=== PATIENT | female | born 1975 | race Caucasian/White ===

== ENCOUNTER 2020-01-19 09:39 | Outpatient (CLI) | payer MEDICAID, SELFPAY ==
--- NOTE | 2020-01-19 09:44 | MM_ITS ---
WS: [id number] BILATERAL DIGITAL SCREENING MAMMOGRAPHY WITH CAD CLINICAL INFORMATION: SCREENING HISTORY: Screening mammogram. No current complaints. COMPARISON: TECHNIQUE: Bilateral CC and MLO views. FINDINGS: The breasts are composed of heterogeneous fibroglandular density tissue, which can limit the detectio n of small underlying mass lesions. No suspicious mass, asymmetry, calcifications, or architectural d istortion. No evidence of malignancy. MM/[place] [id number] IMPRESSION: BI-RADS: 1-Negative FOLLOW UP: 1 Year Follow-up Recommend return to annual screening mammography.
== END 2020-01-19 09:40 | disposition home or self-care (01) ==
LOC: RADSHAW 09:42
PROVIDERS: PCP Nurse Practitioner; Visit Provider Nurse Practitioner
DX: Z12.31 Encounter for screening mammogram for malignant neoplasm of breast (principal)
CPT/HCPCS: 77067

== ENCOUNTER 2021-02-22 09:19 | Outpatient (CLI) | payer MEDICAID, SELFPAY ==
--- NOTE | 2021-02-22 09:22 | MM_ITS ---
WS: [id number] BILATERAL SCREENING DIGITAL MAMMOGRAM WITH CAD HISTORY: SCREENING COMPARISON: 01/19/2020, 12/10/2018, 12/04/2017 Bilateral CC and MLO views submitted. Computer aided detection analyzed. Breast composition: The breasts are heterogeneously dense, which may obscure small masses. No suspici ous masses, microcalcifications or architectural distortion. Scattered asymmetries are stable. MM/[place] [id number] IMPRESSION: BI-RADS: 2-Benign FOLLOW UP: 1 Year Follow-up
== END 2021-02-22 09:20 | disposition home or self-care (01) ==
LOC: RADSHAW 09:21
PROVIDERS: PCP Nurse Practitioner; Visit Provider Nurse Practitioner
DX: Z12.31 Encounter for screening mammogram for malignant neoplasm of breast (principal)
CPT/HCPCS: 77067

== ENCOUNTER 2021-03-30 11:09 | Outpatient (CLI) | payer MEDICAID, SELFPAY ==
[2021-03-30 11:51] VITALS: BP 138/84; PULSE 92; RESP 17; TEMP 35.8; O2SAT 96; BMI 44.2
[2021-03-30 13:06] VITALS: BP 140/90; PULSE 90; RESP 19; TEMP 36.6; O2SAT 96
[2021-03-30 14:06] VITALS: BP 123/80; PULSE 82; RESP 20; TEMP 36.8; O2SAT 97
== END 2021-03-30 11:10 | disposition home or self-care (01) ==
LOC: OPS 11:15
PROVIDERS: PCP Nurse Practitioner Family; Visit Provider Nurse Practitioner Family
DX: U07.1 COVID-19 (principal)
CPT/HCPCS: 96372

== ENCOUNTER 2021-04-12 12:05 | Outpatient (CLI) | payer MEDICAID, SELFPAY ==
--- NOTE | 2021-04-12 12:13 | XR_ITS ---
WS: [id number] Exam: XR chest 2V* [id number] Date/Time of Exam: 04/12/2021 12:13 PM Reason For Exam: COUGH Comparison 12/04/2018. Findings: The lungs are clear and fully expanded. Costophrenic angles are sharp. No infiltrates. Bronchovascula r relief appears normal. Cardiac silhouette is unremarkable. Bony elements are intact. Spondylosis an d degenerative changes of the dorsal spine. XR/XR chest 2V* [id number] IMPRESSION: Unremarkable chest radiograph.
== END 2021-04-12 12:06 | disposition home or self-care (01) ==
LOC: RAD 12:07
PROVIDERS: PCP Nurse Practitioner Family; Visit Provider Nurse Practitioner Family
DX: R05.9 Cough, unspecified (principal)
CPT/HCPCS: 71046

== ENCOUNTER 2022-01-06 16:11 | Outpatient (CLI) | payer MEDICAID, SELFPAY ==
--- NOTE | 2022-01-06 16:29 | XRR_ITS ---
PROCEDURE INFORMATION: Exam: XR Right Hip Exam date and time: 01/06/2022 4:29 PM Age: 46 years old Clinical indication: Pain and injury or trauma; Fall; Blunt trauma (contusions or hematomas); Hip pain; Right hip; Additional info: Pain in right hip TECHNIQUE: Imaging protocol: Radiologic exam of the Right hip. Views: 1 view hip with pelvis when performed. COMPARISON: No relevant prior studies available. FINDINGS: Bones/joints: Severe right hip osteoarthritis. Negative fracture or dislocation. Soft tissues: Unremarkable. XR/XR hip RT 2-3V wo/w pel* [id number] IMPRESSION: 1. Negative fracture or dislocation. 2. Severe right hip osteoarthritis.
== END 2022-01-06 16:12 | disposition home or self-care (01) ==
LOC: RAD 16:18
PROVIDERS: PCP Nurse Practitioner Family; Visit Provider Nurse Practitioner Family
DX: M16.11 Unilateral primary osteoarthritis, right hip (principal)
CPT/HCPCS: 73502

== ENCOUNTER 2022-03-01 11:30 | Outpatient (CLI) | payer MEDICAID, SELFPAY ==
--- NOTE | 2022-03-01 11:36 | MM_ITS ---
WS: [id number] BILATERAL SCREENING DIGITAL TOMOSYNTHESIS MAMMOGRAM WITH CAD HISTORY: SCREENING COMPARISON: 2020, 01/19/2020 Bilateral CC and MLO views with tomosynthesis and synthetic mammography submitted. Computer aided det ection analyzed. Breast composition: The breasts are heterogeneously dense, which may obscure small masses. No suspici ous masses, microcalcifications or architectural distortion. MM/[place] [id number] IMPRESSION: BI-RADS: 1-Negative FOLLOW UP: 1 Year Follow-up
== END 2022-03-01 11:31 | disposition home or self-care (01) ==
LOC: RAD 11:33
PROVIDERS: PCP Nurse Practitioner Family; Visit Provider Nurse Practitioner Family
DX: Z12.31 Encounter for screening mammogram for malignant neoplasm of breast (principal)
CPT/HCPCS: 77063; 77067

== ENCOUNTER → 2022-06-14 10:17 | Outpatient (BNVA) | payer MEDICAID, SELFPAY | PROVIDERS: PCP Nurse Practitioner Family; Visit Provider Podiatrist Foot & Ankle Surgery | DX: Q82.8 Other specified congenital malformations of skin (principal); M21.612 Bunion of left foot; M20.42 Other hammer toe(s) (acquired), left foot; M21.42 Flat foot [pes planus] (acquired), left foot; L60.3 Nail dystrophy | CPT/HCPCS: 17110; 73630; 99203 ==

== ENCOUNTER → 2022-06-29 09:56 | Outpatient (BNVA) | payer MEDICAID, SELFPAY | PROVIDERS: PCP Nurse Practitioner Family; Visit Provider Podiatrist Foot & Ankle Surgery | DX: L60.8 Other nail disorders (principal); L60.3 Nail dystrophy; Q82.8 Other specified congenital malformations of skin; M21.612 Bunion of left foot; M20.42 Other hammer toe(s) (acquired), left foot; M21.42 Flat foot [pes planus] (acquired), left foot | CPT/HCPCS: 11750 ==

== ENCOUNTER → 2022-07-13 10:57 | Outpatient (BNVA) | payer MEDICAID, SELFPAY | PROVIDERS: PCP Nurse Practitioner Family; Visit Provider Podiatrist Foot & Ankle Surgery | DX: Q82.8 Other specified congenital malformations of skin (principal); L60.0 Ingrowing nail; L60.8 Other nail disorders; M21.612 Bunion of left foot; M20.42 Other hammer toe(s) (acquired), left foot; M21.42 Flat foot [pes planus] (acquired), left foot; L60.3 Nail dystrophy | CPT/HCPCS: 99213 ==

== ENCOUNTER → 2022-07-24 09:55 | Outpatient (BNVA) | payer MEDICAID, SELFPAY | PROVIDERS: PCP Nurse Practitioner Family; Visit Provider Podiatrist Foot & Ankle Surgery | DX: L60.0 Ingrowing nail (principal); M20.42 Other hammer toe(s) (acquired), left foot | CPT/HCPCS: 99214 ==

== ENCOUNTER 2022-08-25 06:02 | Day surgery (SDC) | payer MEDICAID, SELFPAY ==
[2022-08-24 08:15] VITALS: BMI 45.6
--- NOTE | 2022-08-25 | XR_ITS ---
WS: [id number] Left foot, C-arm fluoroscopy, 08/25/2022 Clinical Data: CRISTY PICS Comparison: None. Findings: There is an orthopedic pin inserted the length of the left second toe. XR/XR foot LT 2V [id number] Impression: Fusion of left second toe.
--- NOTE | 2022-08-25 05:59 | W.PM.OPSUD ---
Surgery/Procedure H&P Update DATE OF PROCEDURE: August 25, 2022 DATE H&P PERFORMED: 08/25/22 CHANGES TO PREVIOUS DOCUMENTATION: None PLANNED PROCEDURE: Operation Date: 08/25/22 07:00 Proposed Procedures p Left second hammertoe correction 69259,M20.42(Left) - Merlin Hyde DPM
--- NOTE | 2022-08-25 05:59 | PM.OPSURHP ---
Providers/Chief Complaint Primary Care Provider: Tammy Gastelum NP Chief Complaint: M20.42 History of Present Illness Andie Lomeli is a 47 year old female Patient presents for surgical consultation of her left second toe, the hammertoe deformity that has been responsible for altered mechanics, wound formation and infection. Has finished taking doxycycline 100mg BID.? Patient has been applying silvadene and band-aid.? She states that she has been experiencing increase discomfort when not having toe wrap.? Still has buckling of her left second toe causing pain from the downward pressure.? Would like to discuss surgical options.? Patient denies any subjective nausea, vomiting, fever, chills, shortness of breath or chest pain.? Review of Systems General: Reports: 10 or more systems reviewed and unremarkable except in HPI and below Const: Denies: fever(s) or chills Eyes: Denies: change in vision Card: Denies: chest pain or palpitations Resp: Denies: dyspnea or productive cough GI: Denies: abdominal pain, nausea or vomiting : Denies: flank pain Musc: Reports: extremity pain, joint pain, joint stiffness, limited range of motion and deformity Skin/Breast: Reports: skin tenderness; Denies: rash Neuro: Reports: difficulty walking; Denies: numbness in extremities, sensory changes or frequent falls Psych: Denies: suicidal ideation Alexander/Lymph: Denies: easy bruising Medications/Allergies Home Medications Medication Instructions Recorded Confirmed Last Taken Type prenat.vits,latoya,tpt-pkiw-[id number] 1 tab PO DAILY 08/09/20 08/24/22 Unknown History clobetasol 0.05 % scalp solution 1 applic topical DAILY #50 mL 02/22/21 08/24/22 Unknown Rx ketoconazole 2 % shampoo 1 applic topical .2 x weekly #120 03/09/22 08/24/22 Unknown Rx mL pimecrolimus 1 % topical cream 1 applic topical BID #30 grams 03/09/22 08/24/22 Unknown Rx (Elisol) ibuprofen 200 mg tablet 200 mg PO Q6H PRN Pain 08/24/22 08/24/22 Unknown History tramadol 50 mg tablet 50 mg PO DAILY PRN Pain 08/24/22 08/24/22 Unknown History Allergies Allergy/AdvReac Type Severity Reaction Status Date / Time penicillin G Allergy rash Verified 07/24/22 10:06 PFSH PFSH: Medical History History of malignant melanoma No pertinent past medical history Surgical History History of lumpectomy of left breast History of tonsillectomy Social History Smoking and tobacco status: never smoked Alcohol intake: current Alcohol intake frequency: holidays/special occasions only Female Reproductive History: Date of last menstrual period: 08/05/22 Vital Signs Weight: Weight last 48 hrs Weight 300 lb Physical Exam Narrative: EXAM NARRATIVE: Patient is alert and oriented ?3 and in no acute distress.? The following is a focused bilateral lower extremity exam. VASCULAR: Dorsalis pedis and posterior tibial arteries palpable +2.? Capillary refill time less than 3 seconds to the distal hallux bilaterally. Calf is supple and nontender proximally and distally.? No pedal edema appreciated.? Pedal hair growth present. NEUROLOGICAL: Epicritic and protopathic sensations grossly intact to the lower extremities.? +2 Achilles tendon reflex noted bilaterally.? Negative Tinel sign upon percussion of lower extremity nerves. DERMATOLOGICAL: Focal hyperkeratotic lesion subfirst metatarsal head of the left foot with a nucleated core.? Mild erythema left second toe matrixectomy site.? No carolin purulence.? Rubor to the left second toe distally. MUSCULOSKELETAL: Reducible hammertoe deformity with sagittal plane dominance to the left second toe.? On gait analysis patient has substitution of flexor tendons and is aggressively plantarflex and her left second toe during stance phase.? Tenderness at hyperkeratotic lesions of first metatarsal head of the left foot.? Tenderness at left second toenail.? Hammertoe of digits 2, 3, 4, 5 left foot.? Bunion of the left foot.? Pes planus foot type bilaterally. CARDIOVASCULAR: S1, S2, normal rate, normal rhythm.? LUNGS: Clear to auscltation, no use of acessory muscles, no crackles or wheezes. A&P Assessment and plan (1) Hammertoe of second toe of left foot: (2) Left foot pain: Plan Pleasant 47-year-old female continues have pain on a daily basis left second toe, she is trying to lose weight and states that trying to maintain activity is difficult due to her left second toe pain.? Like to discuss surgical options.? Has underwent a matrixectomy of the left second dystrophic toenail, has been utilizing a crest pad or hammertoe cushion pad both supportive shoes without improvement in her pain.? She has flexor substitution and sagittal plane contracture of the left second toe.? Her tenderness is at the distal tuft of her left second toe.? Discussed risks versus benefits of flexor tenotomy, given her activity levels and age I am fearful of increased risk for flail toe.? Discussed risks versus benefits of traditional hammertoe surgery which would require arthroplasty of the DIPJ and PIPJ with K wire fixation.? I reviewed at length with the patient, the risks, potential complications, benefits, alternatives, expectations, and typical outcomes associated with the surgery. The risks and potential complications were explained in detail, including but not limited to infection, wound dehiscence or soft tissue complications, bleeding and hematoma, chronic edema, neuritis or nerve damage producing numbness or chronic pain, CRPS, failure to relieve pain or worsening pain, thick / painful / unsightly scar, limited motion / stiffness, malposition, delayed union, malunion, or nonunion, fracture, reaction to implants, anesthetic complications, venous thromboembolism, and deformity recurrence.? I discussed the notion of no regrets with the patient as it pertains to complications and outcomes. The patient seemed to understand the nature of the proposed care and required convalescence. They asked appropriate questions, answered to their satisfaction. They are aware no guarantees can be made as to a satisfactory outcome and they understand there may be other possible unforeseen complications or outcomes not listed here that will be treated accordingly if they arise. There were no written or implied guarantees given to the patient. They gave informed consent to proceed. 08/25/2022 left second hammertoe correction, outpatient, local MAC, shara, supine, K wire fixation, mini C arm, TPS, 30 minutes Coding Level of Care Code Acute Code for Chg Fwd Diagnoses Hammertoe of second toe of left foot M20.42 Left foot pain M79.672
[2022-08-25 06:23] VITALS: BP 157/99; PULSE 84; RESP 16; TEMP 36.7; O2SAT 97
[2022-08-25] MEDS: sodium chloride 0.9% 1,000 ML 30 ML IV (06:28)
[2022-08-25] MEDS: gabapentin 300 mg Capsule PO (06:28)
[2022-08-25] MEDS: CELEcoxib 200 mg Capsule 400 MG PO (06:28)
--- NOTE | 2022-08-25 06:31 | ANES.PREANE2 ---
Pre-Anesthetic Assessment Height/Weight: Height 1.73 m Weight 136.078 kg Temp Pulse Resp BP Pulse Ox O2 Del Method 98.1 F 84 16 157/99 97 Room Air 08/25/22 06:23 08/25/22 06:23 08/25/22 06:23 08/25/22 06:23 08/25/22 06:23 08/25/22 06:23 Preop Diagnosis: Left second hammertoe deformity Operation Date: 08/25/22 07:00 Proposed Procedures p Left second hammertoe correction 67409,M20.42(Left) - Merlin Hyde DPM Familial anesthetic complications: None Was Beta Markell taken within 24 hours: N/A Was Clonidine taken within 24 hours: N/A Last intake: Intake Last Liquid Date 08/24/22 Last Liquid Time 17:30 Last Solid Date 08/24/22 Last Solid Time 17:30 Social No alcohol and No tobacco Exam alert, oriented x 3, clear to auscultation bilaterally and regular rate & rhythm Airway Mallampati: Class III Dentition: chipped Metabolic Morbid Obesity Anesthetic Plan ASA status: 2 Anesthesia: MAC Risk of > 500 ml blood loss (7ml/kg in children): No Medications/Allergies Home Medications Medication Instructions Recorded Confirmed Last Taken Type prenat.vits,latoya,pyr-exqo-bhudm 1 tab PO DAILY 08/09/20 08/25/22 08/24/22 History clobetasol 0.05 % scalp solution 1 applic topical DAILY #50 mL 02/22/21 08/25/22 Unknown Rx ketoconazole 2 % shampoo 1 applic topical .2 x weekly #120 03/09/22 08/25/22 2 Months Ago Rx mL ~06/25/22 pimecrolimus 1 % topical cream 1 applic topical BID #30 grams 03/09/22 08/25/22 2 Days Ago Rx (Elidel) ~08/23/22 ibuprofen 200 mg tablet 200 mg PO Q6H PRN Pain 08/24/22 08/25/22 08/24/22 History tramadol 50 mg tablet 50 mg PO DAILY PRN Pain 08/24/22 08/25/22 08/24/22 History hydrocodone 7.5 mg-acetaminophen 1 tab PO Q6H PRN pain 7 days #28 08/25/22 Unknown Rx 325 mg tablet tabs Allergies Allergy/AdvReac Type Severity Reaction Status Date / Time penicillin G Allergy rash Verified 08/25/22 06:15 Current Medications Generic Name Dose Route Start Last Admin Trade Name Edwinq PRN Reason Stop Dose Admin Sodium Chloride 1,000 mls @ 30 mls/hr 08/25/22 06:15 08/25/22 06:28 Sodium Chloride 0.9% IV 08/26/22 06:14 30 mls/hr .Q24H GIOVANNA Administration PFSH Anesthesia Medical History History of malignant melanoma No pertinent past medical history Surgical History History of lumpectomy of left breast History of tonsillectomy Social History Smoking and tobacco status: never smoked Alcohol intake: current Alcohol intake frequency: holidays/special occasions only Female Reproductive History Date of last menstrual period: 08/05/22 Data Anesthesia Cardiac Studies: No Data to Display
[2022-08-25 06:35] LABS: OR HCG Qualitative Urine Negative (Negative)
[2022-08-25] MEDS: clindamycin 600 MG/50 ML PREMIX 100 MG IV (07:01)
[2022-08-25 07:40] VITALS: BP 116/60; PULSE 76; RESP 16; TEMP 36.1; O2SAT 96
[2022-08-25 07:45] VITALS: BP 115/72; PULSE 81; RESP 16; O2SAT 97
--- NOTE | 2022-08-25 07:47 | PM.OP ---
Operative Report Date of procedure: August 25, 2022 Pre-op diagnosis: Preop Diagnosis Left second hammertoe deformity Post-op diagnosis: Left second hammertoe deformity Procedure done: Left second hammertoe correction. CPT code 02294 Implants: 0.062 K wire. 4-0 nylon, 4-0 Vicryl Surgeon: Merlin Hyde D.P.M. Data Analytics Architect: Shreya Estimated blood loss: Less than 5 15 Brief History: Pleasant 47-year-old female continues have pain on a daily basis left second toe, she is trying to lose weight and states that trying to maintain activity is difficult due to her left second toe pain.? Like to discuss surgical options.? Has underwent a matrixectomy of the left second dystrophic toenail, has been utilizing a crest pad or hammertoe cushion pad both supportive shoes without improvement in her pain.? She has flexor substitution and sagittal plane contracture of the left second toe.? Her tenderness is at the distal tuft of her left second toe.? Discussed risks versus benefits of flexor tenotomy, given her activity levels and age I am fearful of increased risk for flail toe.? Discussed risks versus benefits of traditional hammertoe surgery which would require arthroplasty of the DIPJ and PIPJ with K wire fixation.? I reviewed at length with the patient, the risks, potential complications, benefits, alternatives, expectations, and typical outcomes associated with the surgery. The risks and potential complications were explained in detail, including but not limited to infection, wound dehiscence or soft tissue complications, bleeding and hematoma, chronic edema, neuritis or nerve damage producing numbness or chronic pain, CRPS, failure to relieve pain or worsening pain, thick / painful / unsightly scar, limited motion / stiffness, malposition, delayed union, malunion, or nonunion, fracture, reaction to implants, anesthetic complications, venous thromboembolism, and deformity recurrence.? I discussed the notion of no regrets with the patient as it pertains to complications and outcomes. The patient seemed to understand the nature of the proposed care and required convalescence. They asked appropriate questions, answered to their satisfaction. They are aware no guarantees can be made as to a satisfactory outcome and they understand there may be other possible unforeseen complications or outcomes not listed here that will be treated accordingly if they arise. There were no written or implied guarantees given to the patient. They gave informed consent to proceed. Procedure: Under mild sedation the patient was brought to the operating room and remained on the gurney in supine position. A timeout was performed. Anesthesia was then administered by the anesthesia service. Local anesthesia was injected by myself consisting of 10 cc of 0.5% Marcaine plain in a left second ray block fashion. Exparel total of 10 cc was infiltrated in a grid like fashion subcutaneously to the dorsal aspect of the left forefoot focused at the second ray. Well-padded pneumatic tourniquet was applied to the left ankle. The left lower extremity was scrubbed, prepped and draped utilizing normal aseptic technique. Left foot was then exanguinated with an Esmarch bandage and the tourniquet was inflated to 250 mmHg. Attention was directed to the dorsal aspect of the left second toe where a transverse incision that was semielliptical and converging in fashion was performed through skin with a #15 blade at the dorsal aspect of the left second toe proximal interphalangeal joint with skin bridge being excised and passed from the operative field. Transverse tenotomy was performed as well as transverse capsulotomy at the proximal interphalangeal joint. The head of the proximal phalanx and base of the middle phalanx were denuded of the articular surfaces. The second toe was then reduced in a rectus position in the sagittal plane as well as in the frontal and transverse plane and fixated utilizing a K wire both antegrade and retrograde fashion with a K wire protruding at the second toe and bent at 90 degrees and covered with a Delvis ball. The incision was flushed with copious amounts of sterile saline solution. Intraoperative C-arm confirmed that the K wire did not violate the metatarsal phalangeal joint. The K wire was centered down the medullary canal and excellent apposition of the arthrodesis site of the proximal phalange joint appreciated. The incision was further irrigated and closed in a layered fashion. The extensor tendons were reapproximated utilizing 4-0 Vicryl. Skin reapproximated utilizing 4-0 nylon. The incision was then dressed with Adaptic, sterile 4 x 4's, Kerlix and Damon wrap. Cam boot was applied to the left lower extremity and the tourniquet was deflated. A prompt hyperemic response was noted to the distal digits of the left foot. Patient tolerated the procedure and anesthesia well and was transferred to the PACU with vital signs stable and vascular status intact. Following a period of postoperative monitoring she will be discharged home. May be protected weightbearing with limited activity with a cam boot at all times. Advised patient to elevate her left foot while resting. She was prescribed hydrocodone to be taken judiciously as needed for pain. Will follow-up in podiatry clinic next week for first postoperative visit. Sooner should she experience complications.
[2022-08-25 07:50] VITALS: BP 124/66; PULSE 77; RESP 16; O2SAT 97
[2022-08-25 07:53] VITALS: BP 119/65; PULSE 69; RESP 18; TEMP 36.2; O2SAT 99
[2022-08-25 08:10] VITALS: BP 113/71; PULSE 68; RESP 18; O2SAT 100
--- NOTE | 2022-08-25 12:23 | ANE.PACU2 ---
Inpatient post-anesthesia follow up: Airway intact: Yes Vital signs: Temperature 97.2 F Pulse Rate 68 Respiratory Rate 18 Blood Pressure 113/71 Pulse Oximetry 100 Oxygen Delivery Me thod Room Air Oxygen Flow Rate Fraction of Inspir ed Oxygen Hydration adequate: Yes Nausea and vomiting: No Pain level: 1 Mental status: Baseline
== END 2022-08-25 08:19 | disposition home or self-care (01) ==
PROVIDERS: Anesthesiology; PCP Nurse Practitioner Family; Visit Provider Podiatrist Foot & Ankle Surgery
PROC: (CPT 28285; principal; 2022-08-25 07:00)
DX: M20.42 Other hammer toe(s) (acquired), left foot (principal); E66.01 Morbid (severe) obesity due to excess calories; Z68.42 Body mass index [BMI] 45.0-49.9, adult
CPT/HCPCS: 28285; 73620; 76000; 84703; C1713; C9290; J2250; J2704; J3010; J3490; J7030

== ENCOUNTER → 2022-08-31 13:46 | Outpatient (BNVA) | payer MEDICAID, SELFPAY | PROVIDERS: PCP Nurse Practitioner Family; Visit Provider Podiatrist Foot & Ankle Surgery | DX: M20.42 Other hammer toe(s) (acquired), left foot (principal); Z98.890 Other specified postprocedural states | CPT/HCPCS: 99024 ==

== ENCOUNTER → 2022-09-06 08:49 | Outpatient (BNVA) | payer MEDICAID, SELFPAY | PROVIDERS: PCP Nurse Practitioner Family; Visit Provider Podiatrist Foot & Ankle Surgery | DX: M20.42 Other hammer toe(s) (acquired), left foot (principal); Z98.890 Other specified postprocedural states | CPT/HCPCS: 73630; 99024 ==

== ENCOUNTER → 2022-09-22 09:11 | Outpatient (BNVA) | payer MEDICAID, SELFPAY | PROVIDERS: PCP Nurse Practitioner Family; Visit Provider Podiatrist Foot & Ankle Surgery | DX: Z98.890 Other specified postprocedural states (principal); M20.42 Other hammer toe(s) (acquired), left foot; L21.8 Other seborrheic dermatitis; Z85.820 Personal history of malignant melanoma of skin; L82.1 Other seborrheic keratosis; L85.3 Xerosis cutis; L57.8 Other skin changes due to chronic exposure to nonionizing radiation; L81.4 Other melanin hyperpigmentation; D22.5 Melanocytic nevi of trunk; Z71.89 Other specified counseling; L57.0 Actinic keratosis; L72.11 Pilar cyst | CPT/HCPCS: 11102; 17000; 17003; 73630; 99214 ==

== ENCOUNTER → 2022-10-11 07:39 | Outpatient (BNVA) | payer MEDICAID, SELFPAY | PROVIDERS: PCP Nurse Practitioner Family; Visit Provider Podiatrist Foot & Ankle Surgery | DX: L72.0 Epidermal cyst (principal); M20.42 Other hammer toe(s) (acquired), left foot; Z47.89 Encounter for other orthopedic aftercare; Z98.890 Other specified postprocedural states | CPT/HCPCS: 11423; 12032; 73630; 99024 ==

== ENCOUNTER → 2022-10-19 08:03 | Outpatient (BNVA) | payer MEDICAID, SELFPAY | PROVIDERS: PCP Nurse Practitioner Family; Visit Provider Podiatrist Foot & Ankle Surgery | DX: Z98.890 Other specified postprocedural states (principal); M20.42 Other hammer toe(s) (acquired), left foot | CPT/HCPCS: 73630; 99213 ==

== ENCOUNTER → 2022-10-25 11:51 | Outpatient (BNVA) | payer MEDICAID, SELFPAY | PROVIDERS: PCP Nurse Practitioner Family; Visit Provider Dermatology | DX: Z48.02 Encounter for removal of sutures (principal) | CPT/HCPCS: 99024 ==

== ENCOUNTER 2022-10-29 10:20 | Emergency (ER) | payer MEDICAID, SELFPAY ==
[2022-10-29] VITALS (7 sets, daily range): BP systolic 112–181; BP diastolic 55–121; PULSE 75–86; RESP 1–18; TEMP 36.4; O2SAT 92–99; BMI 44.8
--- NOTE | 2022-10-29 11:41 | CTR_ITS ---
PROCEDURE INFORMATION: Exam: CT Abdomen And Pelvis Without Contrast Exam date and time: 10/29/2022 12:04 PM Age: 47 years old Clinical indication: Abdominal pain; Flank; Right; Additional info: Right flank pain TECHNIQUE: Imaging protocol: Computed tomography of the abdomen and pelvis without contrast. Radiation optimization: All CT scans at this facility use at least one of these dose optimization techniques: automated exposure control; mA and/or kV adjustment per patient size (includes targeted exams where dose is matched to clinical indication); or iterative reconstruction. REPORTING DATA: Count of CT and Cardiac NM exams in prior 12 months: This patient has received 0 known CTs and 0 known cardiac nuclear medicine studies in the 12 months prior to the current study. COMPARISON: CR XR hip RT 2-3V wo/w pel* [id number] 01/06/2022 4:29 PM RADIATION DOSE METRICS: Total DLP (mGy-cm): 1149.92 FINDINGS: Lungs: Multifocal ground-glass opacities are present at the right lung base. Liver: Normal. No mass. Gallbladder and bile ducts: Cholelithiasis. Pancreas: Normal. No ductal dilation. Spleen: The spleen is mildly enlarged measuring 12.9 centimetres. Adrenal glands: Normal. No mass. Kidneys and ureters: There is an 8 mm by 3 mm calculus in the distal right ureter.Mild to moderate hydronephrosis/hydroureter and associated inflammatory stranding. Stomach and bowel: Unremarkable. No obstruction. No mucosal thickening. Appendix: A normal appendix is identified. Intraperitoneal space: Unremarkable. No free air. No significant fluid collection. Vasculature: There is scattered atherosclerotic plaque in the aorta and iliac arteries. Lymph nodes: Unremarkable. No enlarged lymph nodes. Urinary bladder: Unremarkable as visualized. Reproductive: There is a heterogeneous lesion which can not be differentiated from the right side of the uterus and right adnexa measuring 6.3 cm in the transverse dimension. Smaller nodular density along the anterior aspect of the uterus likely represents a fibroid. Bones/joints: There are degenerative changes in the visualized spine. Degenerative changes extend across the pubic symphysis and sacroiliac joints. There is partial osseous fusion across the left sacroiliac joint. There are severe degenerative changes across the right hip joint. [id number] degenerative changes across the left hip joint. Soft tissues: Small fat containing umbilical hernia. CT/CT kidney stone [id number] IMPRESSION: 1. There is an 8 mm x 3 mm calculus in the distal right ureter with obstructive changes as described above. 2. Multifocal ground-glass opacities at the right lung base are nonspecific and can be seen with atypical infection, pneumonitis, and/or pulmonary edema. 3. Heterogeneous lesion which can not be differentiated from the right side of the uterus and right adnexa. Pelvic ultrasound recommended for further evaluation. 4. Cholelithiasis. 5. The spleen is mildly enlarged.
--- NOTE | 2022-10-29 11:42 | W.ED.ABDPA2 ---
HPI - Abdominal Pain General: Chief Complaint: Abdominal Pain Stated Complaint: Right side abd pain, N/V Time Seen by Provider: 10/29/22 11:35 History of Present Illness: This patient is a 47 year old presenting with right flank pain that started at 6:30 this morning. The pain is in her right mid-back and her right mid-abdomen. She also has had burning with urination and she vomited. The pain is slightly better now but still present. She notes that she felt nauseous yesterday morning but didn't throw up, but had none of the other symptoms until this morning. She has not had any abdominal surgeries, she has never had kidney stones. She has had surgery on her face for a melanoma 2 years ago, and had had surgery on her left second toe. She is currently on doxycycline for redness in the toe. Her LMP was one week ago and was normal in timing and duration. PFS ED PFSH: Medical History History of malignant melanoma No pertinent past medical history Surgical History History of lumpectomy of left breast History of tonsillectomy Social History Smoking and tobacco status: never smoked Alcohol intake: current Alcohol intake frequency: holidays/special occasions only Physical Exam Const: COMMON NORMALS: no acute distress, patient oriented x3, no limitations and alert GENERAL APPEARANCE: cooperative and comfortable HENMT: HEAD & SCALP: normal to inspection FACE & SINUS: normal facial exam Eye: GENERAL EYE: appearance normal, both eyes and all related structures Neck/C-Spine: COMMON NORMALS: supple, no meningeal signs and no JVD Chest: COMMONS NORMALS: normal inspection of the chest Resp: COMMON NORMALS: normal respiratory effort, No use of accessory muscles and clear to auscultation bilaterally AUSCULTATION: clear to auscultation bilaterally Cardio: COMMON NORMALS: no JVD, regular rate, regular rhythm and No murmurs present (Cardio) RATE: regular rate RHYTHM: regular rhythm GI: AUSCULTATION: Yes normoactive bowel sounds PALPATION: Yes Tenderness to palpation present (GI) Details: RLQ and RUQ and No Guarding due to palpation present (GI) : BLADDER/KIDNEY EXAM: Yes CVA tenderness on the right Back/Pelvis: COMMON NORMALS: thoracic and lumbar spine normal to inspection GENERAL BACK: Yes CVA tenderness Extremity: OTHER: left second toe without nail - red, swollen, tender Neuro: COMMON NORMALS: patient oriented x3, moves all extremities, no focal motor deficits and no sensory deficits noted SENSORIUM/ORIENTATION: Yes alert MENINGEAL SIGNS: Yes no meningeal signs Psych: COMMON NORMALS: mental status grossly normal, cooperative and normal affect Skin: COMMON NORMALS: no rashes or lesions noted and turgor normal GENERAL SKIN EXAM: no rashes or lesions noted and turgor normal Course Vital Signs: Vital signs: Vital Signs Temperature 97.6 F 10/29/22 10:35 Pulse Rate 79 10/29/22 15:54 Respiratory Rate 1 L 10/29/22 15:26 Blood Pressure 142/86 10/29/22 15:54 Pulse Oximetry 95 10/29/22 15:54 Oxygen Delivery Me thod Room Air 10/29/22 10:35 MDM - Abdominal Pain Medical Decision Making Clinical impression on initial history and exam is kidney stone. Also consider pyelonephritis, although abrupt onset make stone more likely. However, she also has her gallbladder, appendix and ovaries - consideration for pathology in those organs is needed. Also history of melanoma, which is alway concerning for metastatic disease. Her left second toe is under treatment and she doesn't think it looks any worse than it has been looking. Likely unrelated to her symptoms today - although the doxycycline could contribute to nausea. Ct with kidney stone, 3 cm by 8 cm. Mild to moderate hydronephrosis. No UTI. CT also shows gallstones and an abnormality on the right uterus and adnexa. On re-examination, the patient does have RUQ tenderness. An US was ordered to make sure the the gallbladder is not contributing to the patient symptoms today. We discussed the option for a pelvic US but the patient prefers to discuss with her PCP at her well woman exam tomorrow. I think that is reasonable and I don't think it is an acute issue needing emergent imaging. Pain controlled - outpatient follow up with urology and PCP. Lab Data 10/29/22 12:01 10/29/22 12:01 Labs/Radiology: Radiology Impressions Abdomen/Pelvis CT 10/29/22 11:41 IMPRESSION: 1. There is an 8 mm x 3 mm calculus in the distal right ureter with obstructive changes as described above. 2. Multifocal ground-glass opacities at the right lung base are nonspecific and can be seen with atypical infection, pneumonitis, and/or pulmonary edema. 3. Heterogeneous lesion which can not be differentiated from the right side of the uterus and right adnexa. Pelvic ultrasound recommended for further evaluation. 4. Cholelithiasis. 5. The spleen is mildly enlarged. Gallbladder Ultrasound 10/29/22 14:24 IMPRESSION: 1. Shsp-ui-pvgojxda right hydronephrosis. 2. There are stones and sludge in the gallbladder. No evidence for wall thickening or pericholecystic fluid to suggest acute cholecystitis. Laboratory Results WBC 13.7 10^3/uL (4.0-10.0) H 10/29/22 12:01 RBC 4.62 10^6/uL (4.1-5.3) 10/29/22 12:01 Hgb 13.7 g/dL (11.5-15.3) 10/29/22 12:01 Hct 42.6 % (37.0-47.0) 10/29/22 12:01 MCV 92.2 fl (81-99) 10/29/22 12:01 MCH 29.7 pg (28.0-34.0) 10/29/22 12:01 MCHC 32.2 g/dL (30.0-36.0) 10/29/22 12:01 RDW 12.8 % (12.1-15.1) 10/29/22 12:01 Plt Count 374 10^3/cmm (130-400) 10/29/22 12:01 MPV 10.1 fL (7.4-10.4) 10/29/22 12:01 Neut % (Auto) 91.6 % 10/29/22 12:01 Lymph % (Auto) 5.3 % 10/29/22 12:01 [place] % (Auto) 2.3 % 10/29/22 12:01 Eos % (Auto) 0.0 % 10/29/22 12:01 Baso % (Auto) 0.4 % 10/29/22 12:01 Neut # (Auto) 12.50 10^3/uL (1.8-7.7) H 10/29/22 12:01 Lymph # (Auto) 0.7 10^3/uL (0.8-4.8) L 10/29/22 12:01 [place] # (Auto) 0.3 10^3/uL (0.2-0.9) 10/29/22 12:01 Eos # (Auto) 0.0 10^3/uL (0.0-0.8) 10/29/22 12:01 Baso # (Auto) 0.1 10^3/uL (0.0-0.1) 10/29/22 12:01 Nucleated RBC % (auto) 0 % 10/29/22 12:01 Nucleated RBCs # 0.0 /100WBC 10/29/22 12:01 Sodium 137 mmol/L (136-145) 10/29/22 12:01 Potassium 4.3 mmol/L (3.5-5.1) 10/29/22 12:01 Chloride 102 mmol/L (98-107) 10/29/22 12:01 Carbon Dioxide 28 mmol/L (22-29) 10/29/22 12:01 Anion Gap 11.2 (5-19) 10/29/22 12:01 BUN 22 mg/dL (6-20) H 10/29/22 12:01 Creatinine 0.9 mg/dL (0.5-0.9) 10/29/22 12:01 GFR Calculation 66.5 mL/min (90-130) L 10/29/22 12:01 Glucose 141 mg/dL (65-115) H 10/29/22 12:01 Calculated Osmolality 284 mOsm/kg (285-295) L 10/29/22 12:01 Calcium 9.1 mg/dL (8.5-10.5) 10/29/22 12:01 Total Bilirubin 0.2 mg/dL (0.15-1.2) 10/29/22 12:01 AST 12 U/L (0-32) 10/29/22 12:01 ALT 10 U/L (0-33) 10/29/22 12:01 Alkaline Phosphatase 54 U/L (35-105) 10/29/22 12:01 Total Protein 7.0 g/dL (6.6-8.7) 10/29/22 12:01 Albumin 4.0 g/dL (3.5-5.2) 10/29/22 12:01 Globulin 2.9 g/dL (1.3-4.6) 10/29/22 12:01 Lipase 10 U/L (13-60) L 10/29/22 12:01 Urine Color Yellow (Yellow) 10/29/22 12:00 Urine Appearance Cloudy (CLEAR) A 10/29/22 12:00 Urine pH 5 (5-7) 10/29/22 12:00 Ur Specific [place] 1.030 (1.005-1.030) 10/29/22 12:00 Urine Protein 1+ (Negative) H 10/29/22 12:00 Urine Glucose (UA) Norm (Normal) 10/29/22 12:00 Urine Ketones Negative (Negative) 10/29/22 12:00 Urine Blood 3+ (Negative) H 10/29/22 12:00 Urine Nitrate Negative (Negative) 10/29/22 12:00 Urine Bilirubin 1+ (Negative) H 10/29/22 12:00 Urine Urobilinogen 1 mg/dL (Negative) H 10/29/22 12:00 Ur Leukocyte Esterase Negative (Negative) 10/29/22 12:00 Urine RBC 15-25 /hpf (0-2) H 10/29/22 12:00 Urine WBC 0-4 /hpf (0-5) H 10/29/22 12:00 Ur Squamous Epith Cells 5-10 /hpf (0-5) H 10/29/22 12:00 Amorphous Sediment 4+ /hpf 10/29/22 12:00 Urine Bacteria 2+ /hpf (NONE) H 10/29/22 12:00 Discharge Plan Discharge Patient Disposition: Home Clinical Impression: Calculus of kidney, H/O Malignant melanoma, S/P foot surgery, Cholelithiasis, Pelvic mass Condition: Stable Prescriptions: New hydrocodone-acetaminophen 5-325 mg tablet 1 tab PO Q6H PRN (Reason: pain) Qty: 20 0RF promethazine 25 mg tablet 25 mg PO Q6H PRN (Reason: nausea and vomiting) Qty: 14 0RF tamsulosin 0.4 mg capsule 0.4 mg PO DAILY Qty: 10 0RF No Action prenat.vits,latoya,wuq-uttn-exaza Tablet 1 tab PO DAILY clobetasol 0.05 % solution 1 applic topical DAILY Qty: 50 3RF Rx Instructions: Apply to itchy areas on scalp daily prn. May apply to ears x 2 weeks then 3x weekly prn ketoconazole 2 % shampoo 1 applic topical .2 x weekly Qty: 120 3RF Rx Instructions: Lather into scalp 2 times weekly. Allow to sit on scalp for 5 minutes before rinsing. pimecrolimus [Elidel] 1 % cream 1 applic topical BID Qty: 30 0RF Rx Instructions: Apply to ears BID for itching. doxycycline hyclate 100 mg capsule 100 mg PO BID 14 Days Qty: 28 0RF hydrocodone-acetaminophen 5-325 mg tablet 1 tab PO Q8H PRN (Reason: pain) 7 Days Qty: 21 0RF ibuprofen 200 mg Tablet 200 mg PO Q6H PRN (Reason: Pain) Discharge Orders: Discharge ED (Routine); Ordered 10/29/22 Ordered By: France Zhou Referrals: Tammy Gastelum, KAYODE [Primary Care Provider] - Patient Instructions: Opioid Safety, Pain Management Activity Restrictions/Additional Instructions: Keep your follow up appointment with your primary care provider tomorrow. Discuss the CT findings including the pelvic mass and the gallstones. You can expect a call from our case reviewer at the hospital to help set up urology follow up - and your doctor can help with that as well. Use the pain medicine as needed - return to the ED if fever, vomiting, uncontrolled pain or if not able to urinate. Coding Level of Care Code ED Kickboxing Instructor for Monie Woodard
[2022-10-29 12:16] LABS: Basophils # 0.1 10^3/uL (0.0-0.1); Basophils % 0.4 %; Hematocrit 42.6 % (37.0-47.0); Hemoglobin 13.7 g/dL (11.5-15.3); Lymphocytes # 0.7 10^3/uL (0.8-4.8); Lymphocytes % 5.3 %; Mean Corpuscular HGB Conc 32.2 g/dL (30.0-36.0); Mean Corpuscular Hemoglobin 29.7 pg (28.0-34.0); Mean Corpuscular Volume 92.2 fl (81-99); Mean Platelet Volume 10.1 fL (7.4-10.4); Monocytes # 0.3 10^3/uL (0.2-0.9); Monocytes % 2.3 %; Neutrophils % 91.6 %; Nucleated Red Blood Cells % 0 %; Platelet Count 374 10^3/cmm (130-400); Red Blood Count 4.62 10^6/uL (4.1-5.3); Red Cell Distribution Width 12.8 % (12.1-15.1); White Blood Count 13.7 10^3/uL (4.0-10.0)
[2022-10-29] MEDS: morphine 4 mg/mL SDV 1 mL IVP ×2 (12:19→15:26)
[2022-10-29] MEDS: ondansetron 2 mg/ML SDV 2 mL 4 MG IVP (12:19)
[2022-10-29 12:56] LABS: Add Urine Microscopic? YES; Bilirubin Urine 1+ (Negative); Blood Urine 3+ (Negative); Glucose Urine UA Norm (Normal); Ketones Urine Negative (Negative); Leukocyte Esterase Urine Negative (Negative); Nitrate Urine Negative (Negative); Protein Urine 1+ (Negative); Urine Appearance Cloudy (CLEAR); Urine Color Yellow (Yellow); Urobilinogen Urine 1 mg/dL (Negative); pH Urine 5 (5-7)
[2022-10-29 12:59] LABS: RBC Urine 15-25 /hpf (0-2); WBC Urine 0-4 /hpf (0-5)
[2022-10-29 13:01] LABS: Amorphous Sediment Urine 4+ /hpf; Bacteria Urine 2+ /hpf
[2022-10-29 13:02] LABS: Add Urine Culture? Yes
[2022-10-29 13:08] LABS: Alanine Aminotransferase 10 U/L (0-33); Alkaline Phosphatase 54 U/L (35-105); Aspartate Amino Transferase 12 U/L (0-32); Chloride 102 mmol/L (98-107); Potassium 4.3 mmol/L (3.5-5.1); Sodium 137 mmol/L (136-145)
[2022-10-29 13:20] LABS: Anion Gap 11.2 (5-19); Blood Urea Nitrogen 22 mg/dL (6-20); Calcium 9.1 mg/dL (8.5-10.5); Carbon Dioxide 28 mmol/L (22-29); Globulin 2.9 g/dL (1.3-4.6); Glomerular Filtration Rate 66.5 mL/min (90-130); Glucose 141 mg/dL (65-115); Lipase 10 U/L (13-60); Osmolality Calculated 284 mOsm/kg (285-295); Total Bilirubin 0.2 mg/dL (0.15-1.2)
--- NOTE | 2022-10-29 14:24 | USR_ITS ---
PROCEDURE INFORMATION: Exam: US Abdomen, Limited; Right Upper Quadrant Exam date and time: 10/29/2022 2:39 PM Age: 47 years old Clinical indication: Abnormal radiologic finding of the abdomen; Ruq pain, stones on CT TECHNIQUE: Imaging protocol: Real time ultrasound of the abdomen with image documentation. Limited exam focused on the right upper quadrant. COMPARISON: CT kidney stone [id number] 10/29/2022 12:04 PM FINDINGS: Liver: Normal. No masses. Gallbladder: There are stones and sludge in the gallbladder. No evidence for gallbladder wall thickening or pericholecystic fluid. Account Specialist reports a positive sonographic Willis's sign. Biliary ducts: Normal. No stones. No dilation. Pancreas: Visualized pancreas is unremarkable. Right kidney: Mfbq-fa-aqjskjyl right hydronephrosis. US/US gall bladder [id number] IMPRESSION: 1. Pikp-vk-zjqgsfcd right hydronephrosis. 2. There are stones and sludge in the gallbladder. No evidence for wall thickening or pericholecystic fluid to suggest acute cholecystitis.
--- NOTE | 2022-10-30 14:47 | DCPLANNER ---
Addendum entered by Mira Valdovinos 10/31/22 08:24: manager market development spoke with patients mother, who stated that patient followed up with her primary care physician. manager market development was told patient does not want the referral at this time. Original Note: manager market development had message to schedule a follow up appointment for patient with urology. manager market development called patient to confirm where she would like referral sent to because [facility] does not have a urologist at this time. manager market development unable to speak with patient, left a message to patient to return director case management phone call.
== END 2022-10-29 15:55 | disposition home or self-care (01) ==
PROVIDERS: Emergency Provider Emergency Medicine; PCP Nurse Practitioner Family
DX: N13.2 Hydronephrosis with renal and ureteral calculous obstruction (principal); K80.20 Calculus of gallbladder without cholecystitis without obstruction; R19.00 Intra-abdominal and pelvic swelling, mass and lump, unspecified site; Z85.820 Personal history of malignant melanoma of skin; Z98.890 Other specified postprocedural states
CPT/HCPCS: 74176; 76705; 80053; 81001; 83690; 85025; 87086; 96374; 96375; 96376; 99285; J2270; J2405

== ENCOUNTER → 2022-11-01 13:48 | Outpatient (BNVA) | payer MEDICAID, SELFPAY | PROVIDERS: PCP Nurse Practitioner Family; Visit Provider Podiatrist Foot & Ankle Surgery | DX: Z98.890 Other specified postprocedural states (principal) | CPT/HCPCS: 73630; 99024 ==

== ENCOUNTER → 2022-11-27 13:15 | Outpatient (BNVA) | payer MEDICAID, SELFPAY | PROVIDERS: PCP Nurse Practitioner Family; Visit Provider Obstetrics & Gynecology | DX: N83.9 Noninflammatory disorder of ovary, fallopian tube and broad ligament, unspecified (principal); D25.9 Leiomyoma of uterus, unspecified | CPT/HCPCS: 76830 ==

== ENCOUNTER → 2022-11-29 16:04 | Outpatient (BNVA) | payer MEDICAID, SELFPAY | PROVIDERS: PCP Nurse Practitioner Family; Visit Provider Obstetrics & Gynecology | DX: N83.8 Other noninflammatory disorders of ovary, fallopian tube and broad ligament (principal) | CPT/HCPCS: 80053 ==

== ENCOUNTER → 2022-12-12 13:52 | Outpatient (BNVA) | payer MEDICAID, SELFPAY | PROVIDERS: PCP Nurse Practitioner Family; Visit Provider Podiatrist Foot & Ankle Surgery | DX: Z98.890 Other specified postprocedural states (principal); M20.42 Other hammer toe(s) (acquired), left foot | CPT/HCPCS: 73630; 99024 ==

== ENCOUNTER → 2022-12-18 09:17 | Outpatient (BNVA) | payer MEDICAID, SELFPAY | PROVIDERS: PCP Nurse Practitioner Family; Referring Provider Nurse Practitioner Family; Visit Provider Surgery | DX: N83.8 Other noninflammatory disorders of ovary, fallopian tube and broad ligament (principal); K80.20 Calculus of gallbladder without cholecystitis without obstruction | CPT/HCPCS: 99203 ==

== ENCOUNTER → 2022-12-22 09:06 | Outpatient (BNVA) | payer MEDICAID, SELFPAY | PROVIDERS: PCP Nurse Practitioner Family; Visit Provider Nurse Practitioner Family | DX: L01.01 Non-bullous impetigo (principal); Z85.820 Personal history of malignant melanoma of skin | CPT/HCPCS: 99214 ==

== ENCOUNTER 2023-01-03 13:28 | Outpatient (CLI) | payer MEDICAID, SELFPAY ==
--- NOTE | 2023-01-03 13:45 | MRR_ITS ---
PROCEDURE INFORMATION: Exam: MR Pelvis Without Contrast Exam date and time: 01/03/2023 2:23 PM Age: 47 years old Clinical indication: Condition or disease; Mass, lump, or swelling; Patient HX: Mass on RT ovary and pain in RT side of pelvis x 10/2022 no injury. HX of melanoma; Additional info: N83.8 - other noninflammatory disorders of ovary, fallopi. . . TECHNIQUE: Imaging protocol: Magnetic resonance imaging of the pelvis without contrast. COMPARISON: CT kidney stone [id number] 10/29/2022 12:04 PM FINDINGS: Intraperitoneal space: No free fluid. Reproductive: Rounded solid appearing mass within the right adnexal region appearing to originate from the right ovary. The mass measures 7.7 x 6.3 x 6.9 cm. On the corresponding CT there appears to be a stalk connecting the mass with the uterus which also appears present on MRI as seen on series 601 image 19. The right ovary appears displaced posterior to the mass in between the mass in the sigmoid colon. There appears to be a central scar or small area of necrosis centrally within the mass. The signal characteristics of the mass are similar to the adjacent uterus. No T1 hyperintense signal suggestive of blood products or melanin seen within the mass. Bones/joints: No evidence of osseous metastatic disease. No fracture. Soft tissues: Unremarkable. MR/MR pelvis wo con* [id number] IMPRESSION: Rounded solid appearing mass in the right adnexal region measuring 7.7 x 6.3 x 6.9 cm. There appears to be a stalk communicating the mass with the uterus which would suggest a subserosal fibroid. The right ovary also appears displaced posteriorly from the mass and an ovarian origin is felt less likely. The mass also does not have the typical imaging characteristics of melanoma metastasis. If further differentiation is clinically warranted then PET-CT or dedicated pre and post-contrast adnexal mass protocol MRI would be the next step imaging modalities to consider.
== END 2023-01-03 13:29 | disposition home or self-care (01) ==
PROVIDERS: PCP Nurse Practitioner Family; Visit Provider Obstetrics & Gynecology
DX: N83.8 Other noninflammatory disorders of ovary, fallopian tube and broad ligament (principal); R10.2 Pelvic and perineal pain; Z85.820 Personal history of malignant melanoma of skin
CPT/HCPCS: 72195

== ENCOUNTER → 2023-01-09 09:00 | Outpatient (BNVA) | payer MEDICAID, SELFPAY | PROVIDERS: PCP Nurse Practitioner Family; Visit Provider Obstetrics & Gynecology | DX: Z12.4 Encounter for screening for malignant neoplasm of cervix (principal) | CPT/HCPCS: 87624 ==

== ENCOUNTER → 2023-01-17 11:21 | Outpatient (BNVA) | payer MEDICAID, SELFPAY | PROVIDERS: PCP Nurse Practitioner Family; Visit Provider Nurse Practitioner Family | DX: L01.01 Non-bullous impetigo (principal); Z08 Encounter for follow-up examination after completed treatment for malignant neoplasm; Z85.820 Personal history of malignant melanoma of skin | CPT/HCPCS: 99213 ==

== ENCOUNTER 2023-01-25 06:43 | Day surgery (SDC) | payer MEDICAID, SELFPAY ==
[2023-01-24 08:42] VITALS: BMI 44.1
[2023-01-25] VITALS (10 sets, daily range): BP systolic 103–151; BP diastolic 75–90; PULSE 74–91; RESP 10–18; TEMP 36.1–36.9; O2SAT 95–99
--- NOTE | 2023-01-25 00:44 | W.PM.OPSFHP ---
Same Day Surgery H&P Indication for Procedure/HPI DATE OF PROCEDURE: January 25, 2023 CHIEF COMPLAINT/INDICATIONFOR SURGICAL PROCEDURE: large pedunculated uterine fibroid thickened heterogeneous endometrium PREOP DIAGNOSIS: large pedunculated uterine fibroid; thickened heterogeneous endometrium PLANNED PROCEDURE: Operation Date: 01/25/23 08:10 Proposed Procedures p Hysteroscopy, endometrial sampling, possible endometrial polypectomy w/Myosure 51166,N83.8(Not Applicable) - Boris Isabel MD s poss Poylpectomy(Not Applicable) - Boris Isabel MD 47 y.o.? Periods monthly Pelvic sono? 11-27-22? uterus 11.7 x 7.2 x 6.3 cm ? 2 cm posterior fibroid ? Right adnexal mass, 7.3 x 6.1 x 5 cm, possible pedunculated ? Uterine fibroid ? Endometrium ?2.3 cm, heterogeneous with 2.3 cm polyp ? Right ovary not identified ? Left ovary not identified Patient with large pedunculated fibroid and thickened heterogeneous endometrium Now scheduled for hysteroscopy, endometrial sampling, possible endometrial polypectomy Medications/Allergies* Allergies/Adverse Reactions Allergy/AdvReac Type Severity Reaction Status Date / Time penicillin G Allergy rash Verified 01/09/23 09:04 Pertinent History/Comorbid Conditions* Medical History (Updated 01/21/23 @ 08:33 by Boris Isabel MD) History of malignant melanoma No pertinent past medical history Surgical History (Updated 10/29/22 @ 15:41 by France Zhou MD) History of lumpectomy of left breast History of tonsillectomy Social History Smoking and tobacco status: never smoked Alcohol intake: current Alcohol intake frequency: holidays/special occasions only Pertinent Exam Findings alert, oriented x 3, clear to auscultation bilaterally and regular rate & rhythm Pertinent Data Pelvic MRI? 01-13-23? 8 x 6 x 7 cm right uterine fibroid ? Normal ovaries Pap? 01-09-23? NILM, negative HPV Recommendations Surgery/Procedure today Coding Level of Care Code Acute Code for Chg Fwd Diagnoses Time Spent (min) 20
[2023-01-25] MEDS: sodium chloride 0.9% 1,000 ML 30 ML IV (07:36)
--- NOTE | 2023-01-25 07:52 | W.PM.OPSUD ---
Surgery/Procedure H&P Update DATE OF PROCEDURE: January 25, 2023 DATE H&P PERFORMED: 01/25/23 H&P UPDATE INFORMATION: I have reviewed H&P completed within last 30 days, I have examined patient prior to procedure and No changes to prior documentation PREOP DIAGNOSIS: abnormal uterine bleeding PLANNED PROCEDURE: Operation Date: 01/25/23 08:10 Proposed Procedures p Hysteroscopy, endometrial sampling, possible endometrial polypectomy w/Myosure 57250,N83.8(Not Applicable) - Boris Isabel MD s poss Poylpectomy(Not Applicable) - Boris Isabel MD
--- NOTE | 2023-01-25 08:09 | P.ANESASSM_ITS ---
Pre-Anesthetic Assessment Height/Weight: Height 1.73 m Weight 131.542 kg Temp Pulse Resp BP Pulse Ox O2 Del Method 97.1 F L 76 18 151/90 99 Room Air 01/25/23 07:32 01/25/23 07:32 01/25/23 07:32 01/25/23 07:32 01/25/23 07:32 01/25/23 07:32 Preop Diagnosis: abnormal uterine bleeding Operation Date: 01/25/23 08:10 Proposed Procedures p Hysteroscopy, endometrial sampling, possible endometrial polypectomy w/Myosure 07708,N83.8(Not Applicable) - Boris Isabel MD s poss Poylpectomy(Not Applicable) - Boris Isabel MD Familial anesthetic complications: None Was Beta Markell taken within 24 hours: N/A Was Clonidine taken within 24 hours: N/A Last intake: Intake Last Liquid Date 01/24/23 Last Liquid Time 23:30 Last Solid Date 01/24/23 Last Solid Time 18:00 Social No alcohol and No tobacco Exam alert, oriented x 3, clear to auscultation bilaterally and regular rate & rhythm Airway Mallampati: Class II Dentition: full Metabolic Morbid Obesity Anesthetic Plan ASA status: 2 Anesthesia: General Risk of > 500 ml blood loss (7ml/kg in children): No Medications/Allergies Home Medications Medication Instructions Recorded Confirmed Last Taken Type clobetasol 0.05 % scalp solution 1 applic topical DAILY #50 mL 02/22/21 01/24/23 01/23/23 Rx ketoconazole 2 % shampoo 1 applic topical .2 x weekly #120 03/09/22 01/24/23 01/23/23 Rx mL pimecrolimus 1 % topical cream 1 applic topical BID #30 grams 03/09/22 01/24/23 01/23/23 Rx (Elidel) hydrocodone 5 mg-acetaminophen 325 1 tab PO Q6H PRN pain #20 tabs 10/29/22 01/25/23 2 Weeks Ago Rx mg tablet ~01/11/23 Allergies Allergy/AdvReac Type Severity Reaction Status Date / Time penicillin G Allergy rash Verified 01/09/23 09:04 Current Medications Generic Name Dose Route Start Last Admin Trade Name Freq PRN Reason Stop Dose Admin Sodium Chloride 1,000 mls @ 30 mls/hr 01/25/23 07:00 01/25/23 07:36 Sodium Chloride 0.9% IV 01/26/23 06:59 30 mls/hr .Q24H GIOVANNA Administration PFSH Anesthesia Medical History History of malignant melanoma No pertinent past medical history Surgical History History of lumpectomy of left breast History of tonsillectomy Social History Smoking and tobacco status: never smoked Alcohol intake: current Alcohol intake frequency: holidays/special occasions o nly Female Reproductive History Date of last menstrual period: 01/01/23 Data Anesthesia Cardiac Studies: No Data to Display
[2023-01-25 08:19] LABS: OR HCG Qualitative Urine Negative (Negative)
--- NOTE | 2023-01-25 09:10 | PM.OP ---
Operative Report Date of procedure: January 25, 2023 Pre-op diagnosis: thickened heterogeneous endometrium on pelvic sono Post-op diagnosis: same Post-op findings: uterine cavity sounded to 13 cm Multiple polyps seen Moderate endometrial tissue Procedure done: hysteroscopy Curettage of uterus Implants: none Specimens removed/disposition: endometrial curettings Surgeon: Boris Isabel MD Anesthesia: MAC Estimated blood loss (mL): 0 Complications: none Condition: stable Disposition: PACU Brief History: 47 y.o. Patient with large pedunculated fibroid and thickened heterogeneous endometrium Procedure: Informed consent signed. Patient was taken to the operating room. Anesthesia was induced. Patient was placed in dorsolithotomy position, prepped and draped for hysteroscopy. A bivalve speculum was placed in the vagina. The anterior lip of the cervix was grasped with a sharp-toothed tenaculum. The cervix was serially dilated with Hegar dilators. . A hysteroscope was placed into the endometrial cavity. The endometrial cavity was sounded to 13 cm. There were multiple polyps and moderate endometrial tissue. The hysteroscope was removed. Endometrial curettage was done with a sharp curette. Endometrial tissue was sent to pathology. The sharp-toothed tenaculum was removed. There was no bleeding from the endometrial cavity or cervix. The patient was then placed supine and awakened and taken to the PACU. Postop condition: stable EBL: none Sponge and instruments counts were normal x 2 Complications: none
--- NOTE | 2023-01-25 09:36 | PC.NURSE ---
0924 - pt arrived to pacu bay 4 with this nurse at side -noted upper chest to have bright red flushing to skin - anesthesia notified per this nurse
--- NOTE | 2023-01-25 11:00 | ANE.PACU2 ---
Inpatient post-anesthesia follow up: Airway intact: Yes Vital signs: Temperature 97 F Pulse Rate 79 Respiratory Rate 16 Blood Pressure 103/78 Pulse Oximetry 98 Oxygen Delivery Me thod Room Air Oxygen Flow Rate Fraction of Inspir ed Oxygen Hydration adequate: Yes Nausea and vomiting: No Pain level: 1 Mental status: Baseline
== END 2023-01-25 12:30 | disposition home or self-care (01) ==
PROVIDERS: Anesthesiology; PCP Nurse Practitioner Family; Visit Provider Obstetrics & Gynecology
PROC: 0UDB8ZZ Extraction of Endometrium, Via Natural or Artificial Opening Endoscopic (ICD-10-PCS; CPT 58558; principal; 2023-01-25 08:00)
PROC: (CPT 58558; 2023-01-25 08:00)
DX: R93.89 Abnormal findings on diagnostic imaging of other specified body structures (principal); N84.0 Polyp of corpus uteri; E66.01 Morbid (severe) obesity due to excess calories; Z68.41 Body mass index [BMI] 40.0-44.9, adult
CPT/HCPCS: 58558; 81025; 84703; 88305; J0330; J1100; J2250; J2405; J2704; J3010; J7030

== ENCOUNTER 2023-02-22 13:25 | Inpatient (IN) | payer MEDICAID, SELFPAY ==
[2023-02-22] VITALS (16 sets, daily range): BP systolic 114–150; BP diastolic 72–93; PULSE 66–83; RESP 13–27; TEMP 36.1–36.9; O2SAT 95–100; BMI 45.3
[2023-02-22 08:48] LABS: Add Urine Microscopic? YES; Bilirubin Urine Neg (Negative); Blood Urine 3+ (Negative); Glucose Urine UA Norm (Normal); Ketones Urine 1+ (Negative); Leukocyte Esterase Urine 2+ (Negative); Nitrate Urine Positive (Negative); Protein Urine 3+ (Negative); Urine Appearance Cloudy (CLEAR); Urine Color Red (Yellow); Urobilinogen Urine 1 mg/dL (Negative); pH Urine 5 (5-7)
[2023-02-22 08:51] LABS: HCG Qualitative Urine. Negative (Negative)
[2023-02-22] MEDS: sodium chloride 0.9% 1,000 ML 30 ML IV (08:56)
--- NOTE | 2023-02-22 08:56 | ANES.PREANE2 ---
Pre-Anesthetic Assessment Height/Weight: Height 1.73 m Weight 135.171 kg Temp Pulse Resp BP Pulse Ox O2 Del Method 97.5 F L 82 20 H 114/79 97 Room Air 02/22/23 08:32 02/22/23 08:32 02/22/23 08:32 02/22/23 08:32 02/22/23 08:32 02/22/23 08:32 Preop Diagnosis: uterine fibroid Operation Date: 02/22/23 09:30 Proposed Procedures p Total abdominal hysterectomy, possible bilateral salpingo-oophorectomy 98014,D25.9(Not Applicable) - Boris Isabel MD s Poss Salpingo Oophorectomy (Open)(Not Applicable) - Boris Isabel MD Familial anesthetic complications: None Was Beta Markell taken within 24 hours: N/A Was Clonidine taken within 24 hours: N/A Last intake: Intake Last Liquid Date 02/21/23 Last Liquid Time 18:30 Last Solid Date 02/21/23 Last Solid Time 18:30 Social No alcohol and No tobacco Exam alert, oriented x 3, clear to auscultation bilaterally and regular rate & rhythm Airway Mallampati: Class I Dentition: full Anesthetic Plan ASA status: 2 Anesthesia: General Risk of > 500 ml blood loss (7ml/kg in children): No Medications/Allergies Home Medications Medication Instructions Recorded Confirmed Last Taken Type clobetasol 0.05 % scalp solution 1 applic topical DAILY #50 mL 02/22/21 02/22/23 3 Weeks Ago Rx ~02/01/23 ketoconazole 2 % shampoo 1 applic topical .2 x weekly #120 03/09/22 02/22/23 3 Weeks Ago Rx mL ~02/01/23 pimecrolimus 1 % topical cream 1 applic topical BID #30 grams 03/09/22 02/22/23 3 Weeks Ago Rx (Elidel) ~02/01/23 hydrocodone 5 mg-acetaminophen 325 1 tab PO Q6H PRN pain #20 tabs 10/29/22 02/22/23 3 Weeks Ago Rx mg tablet ~02/01/23 ibuprofen 800 mg tablet 800 mg PO Q6H PRN Pain 02/21/23 02/22/23 3 Weeks Ago History ~02/01/23 Allergies Allergy/AdvReac Type Severity Reaction Status Date / Time penicillin G Allergy rash Verified 02/22/23 08:25 [facility] Anesthesia Medical History History of malignant melanoma No pertinent past medical history Surgical History History of lumpectomy of left breast History of tonsillectomy Social History Smoking and tobacco/nicotine status: never used tobacco/nicotine Alcohol intake: current Alcohol intake frequency: holidays/special occasions only Female Reproductive History Date of last menstrual period: 02/21/23 Data Anesthesia 02/22/23 08:34 02/22/23 08:34 Urine 02/22/23 Range/Units 08:20 Urine Color Red A (Yellow) Urine Appearance Cloudy A (CLEAR) Urine pH 5 (5-7) Ur Specific [place] 1.020 (1.005-1.030) Urine Protein 3+ H (Negative) Urine Glucose (UA) Norm (Normal) Urine Ketones 1+ H (Negative) Urine Nitrate Positive H (Negative) Urine Bilirubin Neg (Negative) Ur Leukocyte Esterase 2+ H (Negative) Cardiac Studies: No Data to Display
[2023-02-22 08:57] LABS: Basophils # 0.1 10^3/uL (0.0-0.1); Basophils % 0.6 %; Eosinophils # 0.3 10^3/uL (0.0-0.8); Eosinophils % 2.6 %; Hematocrit 39.6 % (36-47); Lymphocytes # 1.6 10^3/uL (0.8-4.8); Lymphocytes % 17.3 %; Mean Corpuscular HGB Conc 32.6 g/dL (30-55); Mean Corpuscular Hemoglobin 29.4 pg (27-33); Mean Corpuscular Volume 90.2 fl (85-98); Mean Platelet Volume 10.6 fL (7.4-10.4); Monocytes # 0.6 10^3/uL (0.2-0.9); Monocytes % 5.8 %; Neutrophils # 6.95 10^3/uL (1.8-7.7); Neutrophils % 73.3 %; Nucleated Red Blood Cells % 0 %; Platelet Count 379 10^3/cmm (157-399); Red Blood Count 4.39 10^6/uL (3.85-5.65); Red Cell Distribution Width 12.6 % (12.1-15.1); White Blood Count 9.49 10^3/uL (3.29-11.43)
[2023-02-22 09:06] LABS: Add Urine Culture? Yes; Bacteria Urine 1+ /hpf; Mucus Urine TRACE /hpf; RBC Urine TOO NUMEROUS TO CNT /hpf (0-2); Squamous Epithelial Cell Urine 0-4 /hpf (0-5)
--- NOTE | 2023-02-22 09:17 | P.HP_ITS ---
Same Day Surgery H&P Indication for Procedure/HPI DATE OF PROCEDURE: February 22, 2023 CHIEF COMPLAINT/INDICATIONFOR SURGICAL PROCEDURE: large uterine fibroid PREOP DIAGNOSIS: uterine fibroid PLANNED PROCEDURE: Operation Date: 02/22/23 09:30 Proposed Procedures p Total abdominal hysterectomy, possible bilateral salpingo-oophorectomy 03829,D25.9(Not Applicable) - Boris Isabel MD s Poss Salpingo Oophorectomy (Open)(Not Applicable) - Boris Isabel MD 47 y.o.? With large pedunculated fibroid Now scheduled for total abdominal hysterectomy, possible bilateral salpingo- oophorectomy Medications/Allergies* Home Medications Medication Instructions Recorded Confirmed Type ibuprofen 800 mg tablet 800 mg PO Q6H PRN Pain 02/21/23 02/22/23 History Allergies/Adverse Reactions Allergy/AdvReac Type Severity Reaction Status Date / Time penicillin G Allergy rash Verified 02/22/23 08:25 Current Medications: Generic Name Dose Route Start Last Admin Trade Name Freq PRN Reason Stop Dose Admin Vancomycin HCl 2,000 mg/ 500 mls @ 250 mls/hr 02/22/23 08:01 02/22/23 08:57 Sodium Chloride IV 02/22/23 10:00 250 mls/hr BILLING AND INSURANCE COORDINATOR ONE Administration Protocol Sodium Chloride 1,000 mls @ 30 mls/hr 02/22/23 08:15 02/22/23 08:56 Sodium Chloride 0.9% IV 02/23/23 08:14 30 mls/hr .Q24H GIOVANNA Administration Pertinent History/Comorbid Conditions* Medical History (Updated 01/21/23 @ 08:33 by Boris Isabel MD) History of malignant melanoma No pertinent past medical history Surgical History (Updated 10/29/22 @ 15:41 by France Zhou MD) History of lumpectomy of left breast History of tonsillectomy Social History Smoking and tobacco/nicotine status: never used tobacco/nicotine Alcohol intake: current Alcohol intake frequency: holidays/special occasions only Pertinent Exam Findings alert, oriented x 3, clear to auscultation bilaterally and regular rate & rhythm Pertinent Data Pelvic MRI 01-13-23 8 x 6 x 7 cm right uterine fibroid; normal ovaries Recommendations Surgery/Procedure today Coding Level of Care Code Acute Code for Chg Fwd Diagnoses Time Spent (min) 20
--- NOTE | 2023-02-22 09:19 | W.PM.OPSUD ---
Surgery/Procedure H&P Update DATE OF PROCEDURE: February 22, 2023 DATE H&P PERFORMED: 02/22/23 PREOP DIAGNOSIS: uterine fibroid PLANNED PROCEDURE: Operation Date: 02/22/23 09:30 Proposed Procedures p Total abdominal hysterectomy, possible bilateral salpingo-oophorectomy 81807,D25.9(Not Applicable) - Boris Isabel MD s Poss Salpingo Oophorectomy (Open)(Not Applicable) - Boris Isabel MD
[2023-02-22 09:23] LABS: Blood Urea Nitrogen 18 mg/dL (6-20); Carbon Dioxide 25 mmol/L (22-29); Chloride 106 mmol/L (98-107); Glucose 103 mg/dL (65-115); Osmolality Calculated 288 mOsm/kg (285-295); Sodium 138 mmol/L (136-145)
[2023-02-22] MEDS: dextrose 5%-lactated ringers 1,000 ML 125 ML IV (13:41)
--- NOTE | 2023-02-22 14:00 | ANE.PACU2 ---
Inpatient post-anesthesia follow up: Airway intact: Yes Vital signs: Temperature 98.4 F Pulse Rate 83 Respiratory Rate 16 Blood Pressure 121/72 Pulse Oximetry 97 Oxygen Delivery Me thod Room Air Oxygen Flow Rate Fraction of Inspir ed Oxygen Hydration adequate: Yes Nausea and vomiting: No Pain level: 1 Mental status: Baseline
--- NOTE | 2023-02-22 15:05 | P.OP_ITS ---
Operative Report Date of procedure: February 22, 2023 Pre-op diagnosis: uterine fibroids heavy menses Post-op diagnosis: same Post-op findings: uterus markedly enlarged with 6 cm peduculated fibroid Normal fallopian tubes Normal ovaries Normal and intact bladder Procedure done: Total abdominal hysterectomy Bilateral salpingectomy Implants: none Specimens removed/disposition: uterus fallopian tubes Surgeon: Boris Isabel MD Anesthesia: General Estimated blood loss (mL): 100 Complications: none Condition: stable Disposition: PACU Brief History: 47 y.o. With large pedunculated fibroid and heavy menses scheduled for total abdominal hysterectomy, possible bilateral salpingo- oophorectomy Procedure: Informed consent obtained. The patient was taken to the operating room and placed supine on the table. General endotracheal anesthesia was induced. The abdomen was prepped and draped in the usual sterile fashion. A maldonado catheter was placed which drained clear urine. A pfannenstiel incision was made and carried down through skin and subcutaneous tissue and fascia. The fascia was sharply incised. The rectus muscles were and the abdomen was entered bluntly in the midline. The pelvic contents were visualized and examined. The uterus was markedly enlarged with a 6 cm pedunculated fibroid arising from the right side of the uterus. The ova prabhjot and tubes were normal. An Eagle-O retractor was placed. The bowels were packed out of the way. The Ligasure device was used throughout for vessel sealing and cutting. The pedunculated fibroid was carefully dissected and ligated, thereby effecting its removal from the uterus. The hysterectomy was begun by dividing and ligating the round ligaments bilaterally. The infundibulopelvic ligaments were divided and skeletonized bilaterally. The ovaries were preserved by dividing the uterus from the uteroovarian ligaments. The vesicouterine peritoneal fold was incised in a transverse curvilinear fashion and sharply dissected downward mobilizing the bladder off the lower uterine segment. The uterine vessels were skeletonized and bilaterally divided and ligated. The procedure was carried down on both sides of the uterus until the cardinal uterosacral ligament was reached. The cervix was then incised. The vaginal cuff was identified and the mucosa was from the cervix. In this fashion, the uterus was removed leaving the vaginal cuff. The vaginal cuff was identified and the mucosa was sewn with O-Vicryl. Both fallopian tubes were removed using the Ligasure device The pelvis was inspected and irrigated. There was no bleeding. The abdominal packs were removed as was the retractor. The fascia was then closed with a continuous stitch of O-Vicryl. The subcutaneous tissue was irrigated and inspected for hemostasis. The skin was then reapproximated using Insorb absorbable subcuticular skin misha. The patient was then placed supine, extubated, and taken to the recovery room. Postoperative condition: stable EBL: 100 cc Complications: none Sponge, needle, instruments counts were correct x two.
[2023-02-22] MEDS: ketorolac 30 mg/mL INJ IVP ×2 (16:12→21:36)
[2023-02-22] MEDS: docusate sodium 100 mg Capsule PO (19:56)
[2023-02-23 05:20] LABS: Hematocrit 33.5 % (36-47); Mean Corpuscular HGB Conc 33.4 g/dL (30-55); Mean Corpuscular Hemoglobin 30.2 pg (27-33); Mean Corpuscular Volume 90.3 fl (85-98); Platelet Count 368 10^3/cmm (157-399); Red Blood Count 3.71 10^6/uL (3.85-5.65); Red Cell Distribution Width 12.7 % (12.1-15.1); White Blood Count 11.64 10^3/uL (3.29-11.43)
[2023-02-23 06:40] VITALS: BP 134/88; PULSE 76; RESP 18; TEMP 37.4; O2SAT 96
[2023-02-23] MEDS: docusate sodium 100 mg Capsule PO (07:52)
[2023-02-23] MEDS: ketorolac 30 mg/mL INJ IVP (07:52)
[2023-02-23 09:30] VITALS: BP 147/87; PULSE 73; TEMP 36.7; O2SAT 96
[2023-02-23 12:50] VITALS: BP 118/76; PULSE 76; TEMP 36.7; O2SAT 97
--- NOTE | 2023-02-23 13:52 | PM.OBGYPN ---
CRM MARKETING SPECIALIST Subjective Subjective: Interval history: POD #1? REYNALDO, bilateral salpingectomy No c/o pain, just ?sore? eating, voiding, ambulating well states wants to go home Vitals/I&O/Wt Last Vital Signs Temp 99.3 F 02/23/23 06:40 Pulse 76 02/23/23 06:40 Resp 18 02/23/23 06:40 BP 134/88 02/23/23 06:40 Pulse Ox 96 02/23/23 06:40 O2 Del Method Room Air 02/23/23 06:40 02/22/23 02/23/23 02/23/23 22:59 06:59 14:59 Output Total 600 / 1200 500 / 1700 Balance -600 / 850 -500 / 350 Weight last 48 hrs Weight 298 lb Weight 298 lb Physical Exam Narrative: Comfortable, awake, alert Afebrile,? VS? normal Lungs:? clear Cor:? RRR Abd:? soft, nondistended, nontender ? Wound clean and dry Ext:?? normal Urinary Catheter Management: Mckeon: Cath Placed During This Visit: yes, but has since been removed by the nurse Reason for Continuing Indwelling Catheter: Decision to DC Catheter Urinary Catheter Date of Insertion: 02/22/23 Urinary Catheter Time of Insertion: 10:00 Date Urinary Catheter Removed: 02/23/23 Time Urinary Catheter Discontinued: 05:00 Data 02/23/23 05:14 02/22/23 08:34 Micro: Microbiology 02/22/23 08:20 Urine Culture - Preliminary Urine,Clean Catch A&P Assessment and plan (1) Uterine fibroid: POD #1? total abdominal hysterectomy, bilateral salpingectomy Doing well Plan discharge home Instructions / precautions given Call / return if fever, chills, nausea, vomiting, pain, bleeding F/u in one week Attestations Medical Necessity Statement*: patient s/p total abdominal hysterectomy, bilateral salpingectomy; plan discharge home today. Coding Level of Care Code Acute Code for Chg Fwd Diagnoses Uterine fibroid D25.9 Time Spent (min) 20
--- NOTE | 2023-02-23 13:55 | PM.OBGYDC ---
Discharge Providers SCIENTIFIC DIRECTOR Date of Admission: 02/22/23 13:25 Date of Discharge: 02/23/23 Attending Provider at Admission: Boris Isabel MD Attending Provider at Discharge: Boris Isabel MD Consults: none Primary SCIENTIFIC DIRECTOR: Boris Isabel MD Primary Care Provider: Tammy Gastelum NP Diagnoses at Discharge Discharge Diagnosis (1) Uterine fibroid: Details from hospital stay: patient with enlarged myomatous uterus and 6 cm pedunculated fibroid underwent total abdominal hysterectomy and bilateral salpingectomy without any complications patient did well postoperatively and was discharged home on first postoperative day Status: Acute Reason for Visit Reason for Visit: 19295 D25.9 Brief History: 47 y.o. with history of heavy menses found to have an enlarged myomatous uterus and 6 cm peduculated fibroid scheduled for hysterectomy, possible bilateral salpingo-oophorectomy Hospital Course Hospital Course patient did well postoperatively was voiding, eating, and ambulating. Physical Exam Const: COMMON NORMALS: no acute distress, average body habitus, patient oriented x3, no limitations, healthy appearing, alert and well nourished Resp: COMMON NORMALS: normal respiratory effort, No retractions and clear to auscultation bilaterally AUSCULTATION: clear to auscultation bilaterally Cardio: COMMON NORMALS: regular rate and regular rhythm RATE: regular rate RHYTHM: regular rhythm GI: COMMON NORMALS: Normal to inspection, nondistended, normoactive bowel sounds present, Soft to palpation and non-tender PALPATION: Yes Soft to palpation OTHER: wound clean and dry Extremity: COMMON NORMALS: normal to inspection and no calf tenderness Neuro: COMMON NORMALS: patient oriented x3 SENSORIUM/ORIENTATION: Yes alert Urinary Catheter Management: Mckeon: Cath Placed During This Visit: yes, but has since been removed by the nurse Reason for Continuing Indwelling Catheter: Decision to DC Catheter Urinary Catheter Date of Insertion: 02/22/23 Urinary Catheter Time of Insertion: 10:00 Date Urinary Catheter Removed: 02/23/23 Time Urinary Catheter Discontinued: 05:00 Discharge Data Studies Completed and Pending Pending at discharge Category Date Time Status Urine Culture Stat Lab 02/22/23 08:20 Results Pathology: Surgical [PTH] Routine Pth 02/22/23 12:04 Received Laboratory Results WBC 11.64 10^3/uL (3.29-11.43) H 02/23/23 05:14 RBC 3.71 10^6/uL (3.85-5.65) L 02/23/23 05:14 Hgb 11.20 g/dL (11.27-16.99) L 02/23/23 05:14 Hct 33.5 % (36-47) L 02/23/23 05:14 MCV 90.3 fl (85-98) 02/23/23 05:14 MCH 30.2 pg (27-33) 02/23/23 05:14 MCHC 33.4 g/dL (30-55) 02/23/23 05:14 RDW 12.7 % (12.1-15.1) 02/23/23 05:14 Plt Count 368 10^3/cmm (157-399) 02/23/23 05:14 MPV 10.0 fL (7.4-10.4) 02/23/23 05:14 Neut % (Auto) 73.3 % 02/22/23 08:34 Lymph % (Auto) 17.3 % 02/22/23 08:34 [place] % (Auto) 5.8 % 02/22/23 08:34 Eos % (Auto) 2.6 % 02/22/23 08:34 Baso % (Auto) 0.6 % 02/22/23 08:34 Neut # (Auto) 6.95 10^3/uL (1.8-7.7) 02/22/23 08:34 Lymph # (Auto) 1.6 10^3/uL (0.8-4.8) 02/22/23 08:34 [place] # (Auto) 0.6 10^3/uL (0.2-0.9) 02/22/23 08:34 Eos # (Auto) 0.3 10^3/uL (0.0-0.8) 02/22/23 08:34 Baso # (Auto) 0.1 10^3/uL (0.0-0.1) 02/22/23 08:34 Nucleated RBC % (auto) 0 % 02/22/23 08:34 Nucleated RBCs # 0.0 /100WBC 02/22/23 08:34 Sodium 138 mmol/L (136-145) 02/22/23 08:34 Potassium 4.0 mmol/L (3.5-5.1) 02/22/23 08:34 Chloride 106 mmol/L (98-107) 02/22/23 08:34 Carbon Dioxide 25 mmol/L (22-29) 02/22/23 08:34 Anion Gap 11.0 (5-19) 02/22/23 08:34 BUN 18 mg/dL (6-20) 02/22/23 08:34 Creatinine 0.4 mg/dL (0.5-0.9) L 02/22/23 08:34 GFR Calculation 169.0 mL/min (90-130) H 02/22/23 08:34 Glucose 103 mg/dL (65-115) 02/22/23 08:34 Calculated Osmolality 288 mOsm/kg (285-295) 02/22/23 08:34 Calcium 9.0 mg/dL (8.5-10.5) 02/22/23 08:34 HCG, Qual Negative (Negative) 02/22/23 08:20 Urine Color Red (Yellow) A 02/22/23 08:20 Urine Appearance Cloudy (CLEAR) A 02/22/23 08:20 Urine pH 5 (5-7) 02/22/23 08:20 Ur Specific Avant 1.020 (1.005-1.030) 02/22/23 08:20 Urine Protein 3+ (Negative) H 02/22/23 08:20 Urine Glucose (UA) Norm (Normal) 02/22/23 08:20 Urine Ketones 1+ (Negative) H 02/22/23 08:20 Urine Blood 3+ (Negative) H 02/22/23 08:20 Urine Nitrate Positive (Negative) H 02/22/23 08:20 Urine Bilirubin Neg (Negative) 02/22/23 08:20 Urine Urobilinogen 1 mg/dL (Negative) H 02/22/23 08:20 Ur Leukocyte Esterase 2+ (Negative) H 02/22/23 08:20 Urine RBC Too numerous to cnt /hpf (0-2) H 02/22/23 08:20 Urine WBC 10-15 /hpf (0-5) H 02/22/23 08:20 Ur Squamous Epith Cells 0-4 /hpf (0-5) H 02/22/23 08:20 Amorphous Sediment Not Reportable 02/22/23 08:20 Urine Bacteria 1+ /hpf (NONE) H 02/22/23 08:20 Urine Mucus Trace /hpf 02/22/23 08:20 Blood Type O Positive 02/22/23 08:35 Rho(D) Type Positive 02/22/23 08:35 Antibody Screen Negative 02/22/23 08:35 Vitals Last Vital Signs Temp 99.3 F 02/23/23 06:40 Pulse 76 02/23/23 06:40 Resp 18 02/23/23 06:40 BP 134/88 02/23/23 06:40 Pulse Ox 96 02/23/23 06:40 O2 Del Method Room Air 02/23/23 06:40 Results Labs OB ([facility]): Blood Type O Positive 02/22/23 Antibody Screen Negative 02/22/23 Hct 33.5 % (36-47) L 02/23/23 Hgb 11.20 g/dL (11.27-16.99) L 02/23/23 Rho(D) Type Positive 02/22/23 Plt Count 368 10^3/cmm (157-399) 02/23/23 HCG, Qual Negative (Negative) 02/22/23 Micro Urine Specimen 02/22/23 Pap Smear Interpret See note 01/09/23 Discharge Plan Discharge Patient Disposition: Home Condition: Stable Prescriptions: Continued clobetasol 0.05 % solution 1 applic topical DAILY Qty: 50 3RF Rx Instructions: Apply to itchy areas on scalp daily prn. May apply to ears x 2 weeks then 3x weekly prn ketoconazole 2 % shampoo 1 applic topical .2 x weekly Qty: 120 3RF Rx Instructions: Lather into scalp 2 times weekly. Allow to sit on scalp for 5 minutes before rinsing. pimecrolimus [Elidel] 1 % cream 1 applic topical BID Qty: 30 0RF Rx Instructions: Apply to ears BID for itching. hydrocodone-acetaminophen 5-325 mg tablet 1 tab PO Q6H PRN (Reason: pain) Qty: 20 0RF ibuprofen 800 mg Tablet 800 mg PO Q6H PRN (Reason: Pain) Discharge Orders: Discharge Order (Routine); Ordered 02/23/23 Ordered By: Boris Isabel Referrals: Boris Isabel MD [Physician] - 02/28/23 9:45 am (* Your post op appiontment is with Dr. Isabel on 02/28/2023 at 9:45am. ) Discharge Diet: Usual diet Discharge Activity: Increase activity as tolerated Patient Instructions: Salpingectomy (DC), Hysterectomy (DC), OB Discharge Report, OB Food/Drug Interaction Guide, Opioid Safety Activity Restrictions/Additional Instructions: call Dr. Isabel at cell [phone] if problems Discharge Attestations SCIENTIFIC DIRECTOR Time Spent in Discharge Care*: less than 30 min Coding Level of Care Code Acute Code for Chg Fwd Diagnoses Uterine fibroid D25.9 Time Spent (min) 20
== END 2023-02-23 12:56 | disposition home or self-care (01) | DRG 743 ==
LOC: OBGYN 13:25
PROVIDERS: Admitting Provider Obstetrics & Gynecology; PCP Nurse Practitioner Family; Visit Provider Obstetrics & Gynecology
PROC: 0UT90ZZ Resection of Uterus, Open Approach (ICD-10-PCS; CPT 58150; principal; 2023-02-22 10:55)
PROC: 0UT90ZZ Resection of Uterus, Open Approach (ICD-10-PCS; CPT 58720; 2023-02-22 10:55)
DX: D25.9 Leiomyoma of uterus, unspecified (principal); N92.0 Excessive and frequent menstruation with regular cycle
CPT/HCPCS: 36415; 51702; 80048; 81001; 81025; 85025; 85027; 86850; 86900; 87086; 88307; J0131; J1100; J1170; J1200; J1885; J2250; J2405; J2704; J2710; J3010; J3370; J3490; J7030; J7040; J7121

== ENCOUNTER → 2023-03-05 10:56 | Outpatient (BNVA) | payer MEDICAID, SELFPAY | PROVIDERS: PCP Nurse Practitioner Family; Visit Provider Nurse Practitioner Family | DX: Z85.820 Personal history of malignant melanoma of skin (principal); L57.8 Other skin changes due to chronic exposure to nonionizing radiation; D22.4 Melanocytic nevi of scalp and neck; L81.4 Other melanin hyperpigmentation | CPT/HCPCS: 99213 ==

== ENCOUNTER 2023-03-14 13:29 | Outpatient (CLI) | payer MEDICAID, SELFPAY ==
--- NOTE | 2023-03-14 13:30 | MM_ITS ---
WS: [id number] BILATERAL 3D TOMOSYNTHESIS DIGITAL SCREENING MAMMOGRAPHY WITH CAD CLINICAL INFORMATION: SCREENING HISTORY: Screening mammogram. No current complaints. COMPARISON: 2021 TECHNIQUE: Bilateral CC and MLO views. FINDINGS: The breasts are composed of heterogeneous fibroglandular density tissue, which can limit the detectio n of small underlying mass lesions. No suspicious mass, asymmetry, calcifications, or architectural d istortion. No evidence of malignancy. A few incidental punctate calcifications. IMPRESSION: MM/[place] [id number] BI-RADS: 2-Benign FOLLOW UP: 1 Year Follow-up Recommend return to annual screening mammography.
== END 2023-03-14 13:30 | disposition home or self-care (01) ==
LOC: MOBLMAM 13:36
PROVIDERS: PCP Nurse Practitioner Family; Visit Provider Nurse Practitioner Family
DX: Z12.31 Encounter for screening mammogram for malignant neoplasm of breast (principal)
CPT/HCPCS: 77063; 77067

== ENCOUNTER → 2024-03-05 13:02 | Outpatient (BNVA) | payer MEDICAID, SELFPAY | PROVIDERS: PCP Nurse Practitioner Family; Visit Provider Nurse Practitioner Family | DX: L85.8 Other specified epidermal thickening (principal); L57.8 Other skin changes due to chronic exposure to nonionizing radiation; D22.4 Melanocytic nevi of scalp and neck; L81.4 Other melanin hyperpigmentation; Z85.820 Personal history of malignant melanoma of skin | CPT/HCPCS: 11102; 99214 ==

== ENCOUNTER 2024-08-04 07:58 | Outpatient (CLI) | payer MEDICAID, SELFPAY ==
--- NOTE | 2024-08-04 08:20 | MM_ITS ---
WS: [id number] BILATERAL SCREENING DIGITAL TOMOSYNTHESIS MAMMOGRAM WITH CAD HISTORY: Z12.39 - Encounter for other screening for malignant neop... COMPARISON: 03/14/2023, 03/01/2022 Bilateral CC and MLO views with tomosynthesis and synthetic mammography submitted. Computer aided detection analyzed. Breast composition: The breasts are heterogeneously dense, which may obscure small masses. No suspicious masses, microcalcifications or architectural distortion. Benign calcifications in each breast. MM/MM scr tomosynthesis [id number] IMPRESSION: BI-RADS: 2 - Benign FOLLOW UP: 1 Year Follow-up
== END 2024-08-04 07:59 | disposition home or self-care (01) ==
LOC: RAD 07:59
PROVIDERS: PCP Obstetrics & Gynecology; Visit Provider Obstetrics & Gynecology
DX: Z12.31 Encounter for screening mammogram for malignant neoplasm of breast (principal); R92.333 Mammographic heterogeneous density, bilateral breasts; R92.1 Mammographic calcification found on diagnostic imaging of breast
CPT/HCPCS: 77063; 77067

== ENCOUNTER → 2024-09-03 13:44 | Outpatient (BNVA) | payer MEDICAID, SELFPAY | PROVIDERS: PCP Obstetrics & Gynecology; Visit Provider Nurse Practitioner Family | DX: L85.8 Other specified epidermal thickening (principal); L40.0 Psoriasis vulgaris; L57.8 Other skin changes due to chronic exposure to nonionizing radiation; L81.4 Other melanin hyperpigmentation; D22.5 Melanocytic nevi of trunk; Z08 Encounter for follow-up examination after completed treatment for malignant neoplasm; Z85.820 Personal history of malignant melanoma of skin; L57.0 Actinic keratosis | CPT/HCPCS: 17000; 99214 ==

== ENCOUNTER → 2024-12-31 13:42 | Outpatient (BNVA) | payer MEDICAID, SELFPAY | PROVIDERS: PCP Obstetrics & Gynecology; Visit Provider Surgery | DX: Z12.11 Encounter for screening for malignant neoplasm of colon (principal); R03.0 Elevated blood-pressure reading, without diagnosis of hypertension | CPT/HCPCS: 99024; 99204 ==

== ENCOUNTER 2025-01-15 09:45 | Day surgery (SDC) | payer MEDICAID, SELFPAY ==
[2025-01-15 10:00] VITALS: BP 138/90; PULSE 96; RESP 18; TEMP 36.1; O2SAT 96
[2025-01-15 10:07] VITALS: BMI 43.9
--- NOTE | 2025-01-15 10:10 | W.PM.OPSUD ---
Surgery/Procedure H&P Update DATE OF PROCEDURE: January 15, 2025 DATE H&P PERFORMED: 12/31/24 H&P UPDATE INFORMATION: I have reviewed H&P completed within last 30 days, I have examined patient prior to procedure, No changes to prior documentation, H&P is in [facility] EMR on date indicated and Risks and benefits of the procedure reviewed PLANNED PROCEDURE: Operation Date: 01/15/25 11:05 Proposed Procedures p Colonoscopy 12863 G0105 Z12.11(Not Applicable) - Raheem Penaloza MD
--- NOTE | 2025-01-15 10:27 | ANES.PREANE2 ---
Pre-Anesthetic Assessment Height/Weight: Height 1.73 m Weight 131.088 kg Temp Pulse Resp BP Pulse Ox O2 Del Method 97.0 F L 96 18 138/90 96 Room Air 01/15/25 10:00 01/15/25 10:00 01/15/25 10:00 01/15/25 10:00 01/15/25 10:00 01/15/25 10:00 Preop Diagnosis: screen Operation Date: 01/15/25 11:05 Proposed Procedures p Colonoscopy 48340 G0105 Z12.11(Not Applicable) - Raheem Penaloza MD Familial anesthetic complications: none Was Beta Markell taken within 24 hours: N/A Was Clonidine taken within 24 hours: N/A Last intake: Intake Last Liquid Date 01/14/25 Last Liquid Time 20:00 Last Solid Date 01/13/25 Last Solid Time 17:00 Social No alcohol and No tobacco Exam alert, oriented x 3, clear to auscultation bilaterally and regular rate & rhythm Airway Submandibular: within normal limits Cervical ROM: within normal limits Mallampati: Class II History/ROS No significant history except as noted Pulmonary None reported CV/HEM None reported None reported Hepatic None reported GI None reported Metabolic Morbid Obesity hx adnexal mass, ovarian ca Musc/skel Osteoarthritis/DJD (hip pain. difficulty walking) and None reported Neuropsych Neuropathy (parasthesia to ext) and None reported Anesthetic Plan ASA status: 3 Anesthesia: MAC Risk of > 500 ml blood loss (7ml/kg in children): No Medications/Allergies Home Medications ?Medication ?Instructions ?Recorded ?Confirmed ?Last Taken ?Type clobetasol 0.05 % scalp solution 1 applic topical DAILY #50 mL 02/22/21 01/15/25 01/12/25 Rx pimecrolimus 1 % topical cream 1 applic topical BID #30 grams 03/09/22 01/15/25 3 Weeks Ago Rx (Elidel) ~02/01/23 ibuprofen 800 mg tablet 800 mg PO Q6H PRN Pain 02/21/23 01/15/25 3 Weeks Ago History ~02/01/23 bisacodyl 5 mg tablet,delayed 5 mg PO DAILY #4 tabs 12/31/24 01/15/25 01/14/25 Rx release (Dulcolax (bisacodyl)) magnesium citrate 296 ml PO BID 1 day #592 mL 12/31/24 01/15/25 01/14/25 Rx polyethylene glycol 3350 17 17 g PO DAILY 5 days #238 grams 12/31/24 01/15/25 01/12/25 Rx gram/dose oral powder (Miralax) tramadol 50 mg tablet 50 mg PO BID PRN Pain 12/31/24 01/15/25 Unknown History Allergies Allergy/AdvReac Type Severity Reaction Status Date / Time penicillin G Allergy rash Verified 01/15/25 09:55 Current Medications Generic Name Dose Route Start Last Admin Trade Name Freq PRN Reason Stop Dose Admin Sodium Chloride 1,000 mls @ 15 mls/hr 01/15/25 09:52 01/15/25 10:06 Sodium Chloride 0.9% IV 01/16/25 09:51 15 mls/hr .Q24H PRN Administration COLONOSCOPY FLUIDS PFSH Anesthesia Medical History Uterine fibroid History of malignant melanoma No pertinent past medical history Surgical History H/O abdominal hysterectomy History of tonsillectomy History of lumpectomy of left breast Social History Smoking and tobacco/nicotine status: never used tobacco/nicotine Alcohol intake: current Alcohol intake frequency: holidays/special occasions only
[2025-01-15 11:56] VITALS: BP 125/73; PULSE 70; RESP 16; TEMP 36.2; O2SAT 96
[2025-01-15 12:13] VITALS: BP 115/63; PULSE 66; RESP 18; O2SAT 98
[2025-01-15 12:30] VITALS: BP 122/75; PULSE 71; RESP 18; O2SAT 100
--- NOTE | 2025-01-15 12:45 | ANE.PACU2 ---
Inpatient post-anesthesia follow up: Airway intact: Yes Vital signs: Temperature 97.2 F Pulse Rate 71 Respiratory Rate 18 Blood Pressure 122/75 Pulse Oximetry 100 Oxygen Delivery Me thod Room Air Oxygen Flow Rate 97 Fraction of Inspir ed Oxygen Hydration adequate: Yes Nausea and vomiting: No Pain level: 1 Mental status: Baseline
== END 2025-01-15 12:43 | disposition home or self-care (01) ==
PROVIDERS: PCP Nurse Practitioner Family; Visit Provider Surgery
PROC: 0DJD8ZZ Inspection of Lower Intestinal Tract, Via Natural or Artificial Opening Endoscopic (ICD-10-PCS; CPT 45378; principal; 2025-01-15 11:05)
DX: Z12.11 Encounter for screening for malignant neoplasm of colon (principal); D12.5 Benign neoplasm of sigmoid colon; D12.8 Benign neoplasm of rectum; K57.30 Diverticulosis of large intestine without perforation or abscess without bleeding; K62.89 Other specified diseases of anus and rectum; E66.01 Morbid (severe) obesity due to excess calories; Z68.41 Body mass index [BMI] 40.0-44.9, adult; G62.9 Polyneuropathy, unspecified; Z85.820 Personal history of malignant melanoma of skin
CPT/HCPCS: 45380; 45385; 88305; J2704; J3010; J3490; J7030

== ENCOUNTER → 2025-03-06 10:29 | Outpatient (BNVA) | payer MEDICAID, SELFPAY | PROVIDERS: PCP Nurse Practitioner Family; Visit Provider Nurse Practitioner Family | DX: L40.0 Psoriasis vulgaris (principal); L57.8 Other skin changes due to chronic exposure to nonionizing radiation; L81.4 Other melanin hyperpigmentation; D18.01 Hemangioma of skin and subcutaneous tissue; Z08 Encounter for follow-up examination after completed treatment for malignant neoplasm; Z85.820 Personal history of malignant melanoma of skin; L30.9 Dermatitis, unspecified; Z80.8 Family history of malignant neoplasm of other organs or systems | CPT/HCPCS: 11102; 99214 ==